=== PATIENT | female | born 1985 | race Caucasian/White ===

== ENCOUNTER 2018-02-13 17:23 | Emergency (ER) | payer OTHER ==
[2018-02-13 17:40] VITALS: BP 110/76; PULSE 80; RESP 16; TEMP 98.1; O2SAT 99
--- NOTE | 2018-02-13 18:42 | ED PDOC ---
HPI: Eye Injury/Pain Time Seen by Provider: 02/13/18 17:50 Chief Complaint (Nursing): Eye Problem Chief Complaint (Provider): Eye Problem History Per: Patient History/Exam Limitations: no limitations Onset/Duration Of Symptoms: Hrs Current Symptoms Are (Timing): Still Present Severity: None Wears Contact Lens?: No Additional Complaint(s): 32 year old female presents to the ED reporting of discomfort to the lateral corner of left eye, onset a couple hours ago. Otherwise: (-) discharge, (-) redness, (-) eye pain, (-) foreign body sensation, (-) decreased vision/visual changes, (-) other injury, (-) contact lens. Past Medical History Reviewed: Historical Data, Nursing Documentation, Vital Signs Vital Signs: Last Vital Signs Temp 98.1 F 02/13/18 17:38 Pulse 80 02/13/18 17:38 Resp 16 02/13/18 17:38 BP 110/76 02/13/18 17:38 Pulse Ox 99 02/13/18 17:38 - Surgical History Surgical History: No Surg Hx - Family History Family History: States: Unknown Family Hx - Home Medications Home Medications: Ambulatory Orders Medication Instructions Recorded Tobramycin 0.3% [Tobrex 0.3% Ophth 2 drop LEFTEYE QID #1 bottle 02/13/18 Liv] - Allergies Allergies/Adverse Reactions: Allergies Allergy/AdvReac Type Severity Reaction Status Date / Time No Known Allergies Allergy Verified 02/13/18 17:40 Review of Systems ROS Statement: Except As Marked, All Systems Reviewed And Found Negative Constitutional: Negative for: Fever Eyes: Positive for: Pain. Negative for: Vision Change, Conjunctivae Inflammation, Eyelid Inflammation, Redness Physical Exam - Reviewed Nursing Documentation Reviewed: Yes Vital Signs Reviewed: Yes - Physical Exam Comments: GENERAL APPEARANCE: Patient is awake, alert, oriented x 3, in no acute distress. HEENT: (-) facial swelling and erythema, (-) facial blisters. LIDS & LASHES: (+) mild edema and tenderness to palpation to the lateral canthus to left eye PUPILS: Pupils equal, round, reactive to light. EOM's: Intact. LID EVERSION: (-) foreign body. CONJUNCTIVAE: (-) injection. CORNEA: (-) foreign body noted. ANTERIOR CHAMBER: (-) foreign body, (-) tear in iris, (-) hyphema. - ECG O2 Sat by Pulse Oximetry: 99 (RA) Pulse Ox Interpretation: Normal Medical Decision Making Medical Decision Making: Advised to follow up with primary care physician in 1-2 days without fail. Advised to take medication as prescribed. Return to the emergency room at any time for any new or worsening symptoms. Patient states she fully agrees with and understands discharge instructions. States that she agrees with the plan and disposition. Verbalized and repeated discharge instructions and plan. I have given the patient opportunity to ask any additional questions. Scribe Attestation: Documented by Amanda Sanchez, acting as a scribe for Antoinette Dowling PA-C. Provider Scribe Attestation: All medical record entries made by the Scribe were at my direction and personally dictated by me. I have reviewed the chart and agree that the record accurately reflects my personal performance of the history, physical exam, medical decision making, and the department course for this patient. I have also personally directed, reviewed, and agree with the discharge instructions and disposition. Disposition - Clinical Impression Clinical Impression: Sty - Patient ED Disposition Is Patient to be Admitted: No Counseled Patient/Family Regarding: Diagnosis, Need For Followup, Rx Given - Disposition Referrals: Osvaldo Barnes MD [Staff Provider] - Disposition: Routine/Home Disposition Time: 18:15 Condition: STABLE Additional Instructions: Thank you for letting us take care of you today. You were treated for sty. The emergency medical care you received today was directed at your acute symptoms. If you were prescribed any medication, please fill it and take as directed. It may take several days for your symptoms to resolve. Return to the Emergency Department if your symptoms worsen, do not improve, or if you have any other problems. Please contact your doctor in 2 days for re-evaluation and follow up / or call one of the physicians/clinics you have been referred to that are listed on the Patient Visit Information form that is included in your discharge packet. Bring any paperwork you were given at discharge with you along with any medications you are taking to your follow up visit. Our treatment cannot replace ongoing medical care by a primary care provider (PCP) outside of the emergency department. Thank you for allowing the [facility] team to be part of your care today. Prescriptions: Tobramycin 0.3% [Tobrex 0.3% Ophth Soln] 2 drop LEFTEYE QID #1 bottle Instructions: Qi (Dinesh) Forms: [facility] [employer] (Slovak) - PA / VB NET DEVELOPER / Resident Statement MD/DO has reviewed & agrees with the documentation as recorded.
== END 2018-02-13 18:45 | disposition home or self-care (01) ==
LOC: H.ER 17:23
DX: H00.026 Hordeolum internum left eye, unspecified eyelid (principal)

== ENCOUNTER 2018-04-10 13:44 | Emergency (ER) | payer OTHER ==
[2018-04-10 13:51] VITALS: BP 101/68
--- NOTE | 2018-04-10 14:33 | ED PDOC ---
HPI: Female Pain Time Seen by Provider: 04/10/18 14:00 Chief Complaint (Nursing): Female Genitourinary Chief Complaint (Provider): Female Genitourinary History Per: Patient History/Exam Limitations: no limitations Onset/Duration Of Symptoms: Days (x1) Current Symptoms Are (Timing): Still Present Additional Complaint(s): 32 year old female, approximately 6 weeks , presents to the emergency department with a complaint of vaginal spotting associated with intermittent nausea since 0900 this morning. Patient called her COLORING CHECKER doctor whom recommended to go to ED for further evaluation. She denies having any fever, chills, painful urination, bloody urine, vaginal pain, abdominal pain, dizziness or back pain. Patient is currently taking vitamins and has not had an US performed for this to date. COLORING CHECKER: Dr. Javier Galindo Past Medical History Reviewed: Historical Data, Nursing Documentation, Vital Signs Vital Signs: Last Vital Signs Temp 98 F 04/10/18 13:48 Pulse 82 04/10/18 13:48 Resp 18 04/10/18 13:48 BP 101/68 04/10/18 13:48 Pulse Ox 100 04/10/18 13:48 - Medical History PMH: No Chronic Diseases - Surgical History Surgical History: No Surg Hx - Family History Family History: States: Unknown Family Hx - Social History Current smoker - smoking cessation education provided: No Alcohol: None Drugs: Denies - Allergies Allergies/Adverse Reactions: Allergies Allergy/AdvReac Type Severity Reaction Status Date / Time No Known Allergies Allergy Verified 04/10/18 13:48 Review of Systems ROS Statement: Except As Marked, All Systems Reviewed And Found Negative Constitutional: Negative for: Fever, Chills Gastrointestinal: Positive for: Nausea (intermittent). Negative for: Abdominal Pain Genitourinary Female: Positive for: Vaginal Bleeding (spotting). Negative for: Dysuria, Hematuria, Other (vaginal pain) Musculoskeletal: Negative for: Back Pain Neurological: Negative for: Dizziness Physical Exam - Reviewed Nursing Documentation Reviewed: Yes Vital Signs Reviewed: Yes - Physical Exam Appears: Positive for: Well, Non-toxic, No Acute Distress Head Exam: Positive for: ATRAUMATIC, NORMAL INSPECTION, NORMOCEPHALIC Skin: Positive for: Normal Color Eye Exam: Positive for: Normal appearance Neck: Positive for: Normal Cardiovascular/Chest: Positive for: Regular Rate, Rhythm. Negative for: Murmur Respiratory: Positive for: Normal Breath Sounds. Negative for: Respiratory Distress Pulses-Radial (L): 2+ Pulses-Radial (R): 2+ Gastrointestinal/Abdominal: Positive for: Normal Exam, Soft. Negative for: Tenderness Extremity: Positive for: Normal ROM (upper/lower) Neurologic/Psych: Positive for: Alert (x3), drug abuse resistance education officer II-XII (grossly intact), Oriented. Negative for: Motor/Sensory Deficits - Laboratory Results Result Diagrams: 04/10/18 14:34 04/10/18 14:34 - ECG O2 Sat by Pulse Oximetry: 100 (RA) Pulse Ox Interpretation: Normal Medical Decision Making Medical Decision Making: Initial Impression: Vaginal bleeding; first trimester Initial Plan: * Type and screen * BNP * CMP * Urine * Urine dipstick * CBC Time: 1424 --Will discuss case with Dr. Galindo to consider need for imaging vs. outpatient follow up. Time: 1432 --Spoke with Dr. Galindo. Advised to check BETA level. If count is above 1500, transvaginal US is recommended. --BETA-HCG ordered. Time: 1450 --Urine confirms active . Rh+ labs BHCG 53625 US prelim reveals IUP 6wk w FHR Discussed Dr Galindo earlier, pelvic rest followup in office next week Scribe Attestation: Documented by Chika Saeed, acting as a scribe for Dr. Nick Zambrano III, DO. Provider Scribe Attestation: All medical record entries made by the Scribe were at my direction and personally dictated by me. I have reviewed the chart and agree that the record accurately reflects my personal performance of the history, physical exam, medical decision making, and the department course for this patient. I have also personally directed, reviewed, and agree with the discharge instructions and disposition. Disposition - Clinical Impression Clinical Impression: Threatened in early - Disposition Referrals: Javier Galindo DO [Family Provider] - Condition: STABLE Additional Instructions: Pelvic rest for now- no sex, nothing in the vagina, no heavy lifting or exertion until you see Dr Galindo. Return to ER for any pain, weakness, further bleeding, cramping or any concern. Instructions: Threatened Miscarriage Forms: [employer] (Norwegian)
[2018-04-10 14:52] LABS: BASO % 0.4 % (0.0-2.0); EOS # 0.1 K/uL (0.0-0.7); HEMOGLOBIN 12.3 g/dL (12.0-16.0); LYMPH % 20.7 % (20.0-40.0); MEAN CELL VOLUME 83.9 fl (81.0-99.0); MEAN CORPUSCULAR HEMOGLOBIN 28.1 pg (27.0-31.0); MEAN CORPUSCULAR HGB CONC 33.5 g/dL (33.0-37.0); MEAN PLATELET VOLUME 13.7 fl (7.2-11.7); MONO # 0.7 K/uL (0.0-0.8); MONO % 7.6 % (0.0-10.0); NEUT # 6.8 K/uL (1.8-7.0); NEUT % 70.3 % (50.0-75.0); RBC 4.39 Mil/uL (3.80-5.20); RED CELL DISTRIBUTION WIDTH 14.6 % (11.5-14.5); WHITE BLOOD COUNT 9.7 K/uL (4.8-10.8)
[2018-04-10 15:00] LABS: ALB/GLOB RATIO 1.3 (1.0-2.1); ALBUMIN 4.3 g/dL (3.5-5.0); BLOOD UREA NITROGEN 9 mg/dl (7-17); GFR AFRICAN-AMERICAN > 60; GFR NON-AFRICAN AMERICAN > 60
[2018-04-10 15:33] LABS: ALT/SGPT 34 U/L (9-52); AST/SGOT 27 U/L (14-36); CALCIUM 9.8 mg/dL (8.4-10.2)
--- NOTE | 2018-04-10 18:19 | US ---
PROCEDURE: OB Pelvic Ultrasound HISTORY: spotting LMP: 02/26/2018, serum beta HCG 32,662. COMPARISON: None available. FINDINGS: UTERUS: Gestational sac: Single intrauterine gestation. Measures 1.7 cm compatible with estimated gestational age of 6 weeks, 0 days. Yolk sac: Measures 0.3 cm. pole: [place]-rump length measures 0.3 cm compatible with estimated gestational age of 5 weeks, 6 days. Heart rate: 151 bpm. age (Ultrasound estimated): 6 weeks, 0 days. Deidra-gestational hemorrhage: None. Date of delivery (Ultrasound estimated) : 12/04/2018 Uterus measures 7.4 x 4.1 x 4.8 cm. Retroverted. Normal in size and appearance. CERVIX: Measures 3.6 cm. Long and closed. No cervical abnormality seen. RIGHT OVARY: Measures 3.9 x 2.6 x 3.3 cm. No mass lesion. Normal flow. LEFT OVARY: Measures 4.0 x 2.5 x 3.5 cm. Cyst measuring 2.1 x 1.4 x 1.5. Normal flow. FREE FLUID: None. OTHER FINDINGS: None. IMPRESSION: Single live intrauterine gestation with average ultrasound age of 6 weeks, 0 days. heart rate 151 beats per minute. Cervix long and closed.
[2018-04-10 19:01] VITALS: PULSE 128; RESP 19; TEMP 97; O2SAT 98
== END 2018-04-10 19:01 | disposition home or self-care (01) ==
LOC: MERGE 13:44 → H.ER 13:44
DX: O20.0 Threatened abortion (principal); Z3A.01 Less than 8 weeks gestation of pregnancy

== ENCOUNTER 2018-05-20 18:45 | Emergency (ER) | payer OTHER ==
[2018-05-20 18:59] VITALS: TEMP 99
--- NOTE | 2018-05-20 20:06 | ED PDOC ---
HPI: Abdomen Time Seen by Provider: 05/20/18 19:39 Chief Complaint (Nursing): Trauma History Per: Patient Current Symptoms Are (Timing): Better Location Of Pain/Discomfort: RLQ Associated Symptoms: denies: Fever, Chills, Nausea, Vomiting Additional Complaint(s): 33 y/o F approx 12 weeks states that she opened her door and a dog jumped on her and scratched her knees, states she fell backwards on her bum, states she felt some abdominal pain earlier which has since resolved. Denies vaginal bleeding. No complications with . Denies dog bite. Dog is neighbor's dog, not stray. Past Medical History Reviewed: Historical Data, Nursing Documentation, Vital Signs Vital Signs: Last Vital Signs Temp 99.0 F 05/20/18 18:59 Pulse 75 05/20/18 22:58 Resp 20 05/20/18 22:58 BP 119/75 05/20/18 22:58 Pulse Ox 100 05/20/18 22:58 - Family History Family History: States: Unknown Family Hx - Home Medications Home Medications: Ambulatory Orders Medication Instructions Recorded Tobramycin 0.3% [Tobrex 0.3% Ophth 2 drop LEFTEYE QID #1 bottle 02/13/18 [place]] - Allergies Allergies/Adverse Reactions: Allergies Allergy/AdvReac Type Severity Reaction Status Date / Time No Known Allergies Allergy Verified 05/20/18 19:01 Review of Systems Gastrointestinal: Positive for: Abdominal Pain Physical Exam - Reviewed Nursing Documentation Reviewed: Yes Vital Signs Reviewed: Yes - Physical Exam Appears: Positive for: Well, Non-toxic, No Acute Distress Head Exam: Positive for: ATRAUMATIC, NORMAL INSPECTION, NORMOCEPHALIC Skin: Positive for: Normal Color, Warm, DRY Eye Exam: Positive for: EOMI, Normal appearance, PERRL ENT: Positive for: Normal ENT Inspection Neck: Positive for: Normal, Painless ROM Cardiovascular/Chest: Positive for: Regular Rate, Rhythm Respiratory: Positive for: CNT, Normal Breath Sounds Gastrointestinal/Abdominal: Positive for: Normal Exam, Bowel Sounds, Soft, Tenderness (Mild R sided abdominal pain upon tenderness, gravid uterus) Back: Positive for: Normal Inspection. Negative for: Vertebral Tenderness, Muscle Spasm Extremity: Positive for: Normal ROM, Other (Mild abrasions to knees). Negative for: Deformity Neurologic/Psych: Positive for: Alert, Oriented - ECG O2 Sat by Pulse Oximetry: 97 Pulse Ox Interpretation: Normal Medical Decision Making Medical Decision MakinPM 12-week patient presenting with fall with mild abd pain after falling -not concerned for zoonoses given scratch and no bite higgins -will get U/S to assess for FM and HR -tetanus updated last year 11PM -Ultrasound wnl -Explained to patient and that dog should be investigated and watched for 10 days for potential rabid behavior, but exposure is low if no bite -Offered rabies vaccination but family opted conservative management at this time -Advised family to followup for reguarly scheduled appointment with Dr. Galindo tomorrow Disposition - Clinical Impression Clinical Impression: Dog scratch, Fall - Disposition Referrals: Javier Galindo DO [Staff Provider] - Disposition Time: 23:00 Condition: STABLE Instructions: Skin Abrasions Forms: [facility] (Mosotho)
[2018-05-20 22:58] VITALS: BP 119/75; PULSE 75; RESP 20
[2018-05-21 04:55] VITALS: O2SAT 97
--- NOTE | 2018-05-21 11:25 | US ---
Date of service: 05/20/2018 PROCEDURE: OB Pelvic Ultrasound HISTORY: s/p fall, 12 weeks COMPARISON: None available. FINDINGS: UTERUS: Single Live intrauterine gestation. CRL measures 5.0 cm equivalent to 11 weeks and 5 days of gestational age with Gestational sac diameter measures 5.4 cm equivalent to 11 weeks and 2 days of gestational age. age (Ultrasound estimated): 11 weeks and 4 days Date of delivery (Ultrasound estimated) : 12/05/2018 Heart rate: 153 bpm. Deidra-gestational hemorrhage: None. CERVIX: Long and closed. No cervical abnormality seen. RIGHT OVARY: Measures 2.9 x 1.8 x 2.0 cm. No mass. Normal flow. LEFT OVARY: Measures 3.3 x 2.7 x 3.6 cm. No mass. Normal flow. There is a 2.0 x 1.9 x 2.1 cm simple cyst. FREE FLUID: None. OTHER FINDINGS: None. IMPRESSION: Single live intrauterine gestation with mean gestational age of 11 weeks and 4 days. The estimated date of delivery by ultrasound is 12/05/2018. The ultrasound dates correspond with the clinical dates. A preliminary report was provided by [facility].
== END 2018-05-20 23:01 | disposition home or self-care (01) ==
LOC: H.ER 18:45
DX: T14.8XXA Other injury of unspecified body region, initial encounter (principal); W54.8XXA Other contact with dog, initial encounter; Y92.89 Other specified places as the place of occurrence of the external cause; Z3A.12 12 weeks gestation of pregnancy

== ENCOUNTER 2018-05-21 13:17 | Emergency (ER) | payer OTHER ==
--- NOTE | 2018-05-21 13:54 | ED PDOC ---
HPI: General Adult Time Seen by Provider: 05/21/18 13:30 Chief Complaint (Nursing): Rabies Vaccine Series Chief Complaint (Provider): dog bite History Per: Patient History/Exam Limitations: no limitations Onset/Duration Of Symptoms: Days (x1) Current Symptoms Are (Timing): Still Present Additional Complaint(s): 33 year old female, currently 12 weeks , presents to the ED for rabies vaccine series. Patient reports she was scratched by a dog last night and sustained abrasions on both knees.She thinks she was also bit by the dog. Patient was seen in ED last night and was advised to try and obtain rabies status of dog that bit her. Patient returns today stating that she would likely rabies vaccine series because the dog is a stray and she has no way of contacting the owners. Patient states she spoke with her OB Dr. Galindo who advised that she go see Dr. Randle. Dr. Randle referred her to ED for further evaluation. PMD: Dr. Randle Past Medical History Reviewed: Historical Data, Nursing Documentation, Vital Signs Vital Signs: Last Vital Signs Temp 98.0 F 05/21/18 13:26 Pulse 98 H 05/21/18 13:26 Resp 16 05/21/18 13:26 BP 110/64 05/21/18 13:26 Pulse Ox 97 05/21/18 14:50 - Medical History PMH: No Chronic Diseases - Surgical History Surgical History: No Surg Hx - Family History Family History: States: No Known Family Hx - Living Arrangements Living Arrangements: With Family - Social History Current smoker - smoking cessation education provided: No Alcohol: None Drugs: Denies - Home Medications Home Medications: Ambulatory Orders Medication Instructions Recorded Tobramycin 0.3% [Tobrex 0.3% Ophth 2 drop LEFTEYE QID #1 bottle 02/13/18 Soln] Rabies Vaccine (Pcec)/Pf [Rabavert 2.5 unit IM ASDIR #4 vial 05/21/18 Rabies Vaccine Vial] - Allergies Allergies/Adverse Reactions: Allergies Allergy/AdvReac Type Severity Reaction Status Date / Time No Known Allergies Allergy Verified 05/20/18 19:01 Review of Systems ROS Statement: Except As Marked, All Systems Reviewed And Found Negative Constitutional: Negative for: Fever, Chills Skin: Positive for: Other (abrasions on both knees s/p being attacked by dog) Physical Exam - Reviewed Nursing Documentation Reviewed: Yes Vital Signs Reviewed: Yes - Physical Exam Appears: Positive for: Well, Non-toxic, No Acute Distress Head Exam: Positive for: ATRAUMATIC, NORMAL INSPECTION, NORMOCEPHALIC Skin: Positive for: Normal Color. Negative for: Rash Eye Exam: Positive for: Normal appearance Cardiovascular/Chest: Positive for: Regular Rate, Rhythm Respiratory: Positive for: Normal Breath Sounds Extremity: Positive for: Other (Superficial abrasions to bilateral patellar regions, full range of motion bilateral lower extremities, no infection noted) Neurologic/Psych: Positive for: Alert, Oriented - ECG O2 Sat by Pulse Oximetry: 97 (RA) Pulse Ox Interpretation: Normal Medical Decision Making Medical Decision Making: Time: 13:50 Impression: 33 year old female requesting rabies vaccine s/p being attacked by dog last night. Case was d/w Dr. Troy in detail. Rabies vaccine is Class C for meds. Patient understands that rabies vaccine is not without risk during based on current studies. Patient is willing to accept this risk and still would like to proceed with rabies vaccine. Patient asked to review the ingredients of the rabies vaccine that this [facility] has in stock. This information was provided by Yoko, ED pharmacist. Patient states she does not want to have this particular vaccine administered and is requesting Rabavert instead. 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 Patient was given schedule for vaccine series and was told to either go to PMD office or return to ED for IM administration of meds. Patient verbalized understanding of the fact the rabies vaccine is class C and can carry risk, when administered during . Patient states that she accepts this risk and wants to continue with series. Scribe Attestation: Documented by Yun Bonilla, acting as a scribe for Cady Bush PA-C. Provider Scribe Attestation: All medical record entries made by the Scribe were at my direction and personally dictated by me. I have reviewed the chart and agree that the record accurately reflects my personal performance of the history, physical exam, medical decision making, and the department course for this patient. I have also personally directed, reviewed, and agree with the discharge instructions and disposition. Disposition - Clinical Impression Clinical Impression: Dog scratch - Patient ED Disposition Is Patient to be Admitted: No - Disposition Referrals: Jose G Randle MD [Medical Doctor] - Disposition: Routine/Home Disposition Time: 15:05 Condition: STABLE Additional Instructions: production planning supervisor meds at pharmacy and return to ED or primary doctor as per vaccine schedule to have medication administered. Prescriptions: Rabies Vaccine (Pcec)/Pf [Rabavert Rabies Vaccine Vial] 2.5 unit IM ASDIR #4 vial Instructions: Skin Abrasions, Rabies Vaccine Forms: [facility] (C[place] Rican)
[2018-05-21 16:52] VITALS: BP 120/70; PULSE 78; RESP 18; TEMP 98.1; O2SAT 99
== END 2018-05-21 16:05 | disposition home or self-care (01) ==
LOC: H.ER 13:17
DX: T14.8XXA Other injury of unspecified body region, initial encounter (principal); Z3A.12 12 weeks gestation of pregnancy

== ENCOUNTER 2018-07-30 13:55 | Emergency (ER) | payer OTHER ==
[2018-07-30 21:23] VITALS: BP 145/76; PULSE 87; O2SAT 98
--- NOTE | 2018-07-31 04:03 | OBHP ---
Datetime: 07/30/2018 16:38 IP Adm Impression: , intrauterine IP Admit Plan: Observation/Evaluation; Discharge home Admit Comment, IP Provider: 33 year old at 22 weeks (confirmed via 1st tri U/S, PATY Dec 03) pre sents for a brown streak in discharge noticed earlier in the day. Patient denies vaginal bleeding or a gush of fluid. uncomplicated thus far. - [facility], Dr Galindo PMH: denies Meds: denies, PNV Allergy: denies FHx: denies Labs: unknown, no records ROS: denies headache, change in vision, dizziness, nausea, vomiting, diarrhea, constipation, chest pain, shortness of breath, and lower extremity edema PE: comfortable, in no acute stress Abd: no tenderness to palpation CV: RRR Resp: no respiratory distress Extremities: no pitting edema VE: speculum exam (as per Dr Avalos): no active bleeding, cervix closed,discharge indicative of BV present Assessment: 33 year old at 22 weeks (confirmed via 1st tri U/S, PATY Dec 03) presents for a br own streak in discharge noticed earlier in the day. Plan -RX for Flagyl 500 mg BID x 7 days, #14 -Follow up with routine care -Patient educated on emergent signs and symptoms warranting immediate visit to [facility]. Case seen and discussed with Dr Avalos ---Radha Thomas, PGY1 [facility] FM Addendum: I saw and examined patient at presentation. Sterile speculum exam showed cervix long, closed, post erior. No blood, fluid. Discharge consistent with bacterial vaginosis. Patient given prescription for Flagyl. Discussed plan with patient all patient questions answered. Patient will follow up in office as already scheduled. Bailey Pelvic Type - PN: Adequate Extremities - PN: Normal Abdomen - PN: Normal Back - PN: Not Done Breast - PN: Not Done Lungs - PN: Normal Heart - PN: Normal Thyroid - PN: Not Done Neurologic - PN: Not Done HEENT - PN: Not Done General - PN: Normal EGA AdmitDate IP: 22.0 Vital Signs Provider: Reviewed; Within Normal Limits IP Chief Complaint: Other (Annotations: Data stored by CPN on behalf of user) Dilatation, Provider: 0 Genitourinary Exam: Not Done DTRs - PN: Not Done
== END 2018-07-30 15:30 | disposition home or self-care (01) ==
LOC: H.EROB2 13:55
DX: O26.852 Spotting complicating pregnancy, second trimester (principal); Z3A.22 22 weeks gestation of pregnancy

== ENCOUNTER 2018-09-20 09:55 | Emergency (ER) | payer OTHER ==
[2018-09-20 10:29] VITALS: BMI 29.9
--- NOTE | 2018-09-20 13:45 | US ---
Date of service: 09/20/2018 HISTORY: Leg tenderness. PRIORS: None. FINDINGS: 2-D, color and duplex Doppler analysis of the lower extremity venous circulation using routine protocol from the femoral veins through the popliteal veins. Venous compressibility: Normal. Flow and augmentation patterns: Normal. Visualized veins upper third of calf: Normal. Cole cyst: None. IMPRESSION: No sonographic or Doppler evidence for DVT in left lower extremity.
--- NOTE | 2018-09-20 14:10 | OBHP ---
Datetime: 09/20/2018 10:32 IP Adm Impression: , intrauterine ; No Active Labor IP Chief Complaint Other: Leg pain IP Admit Plan: Observation/Evaluation; Discharge home Admit Comment, IP Provider: 33 yo f 29.3wk presented to [facility] due to left leg pain started 2 day s ago. Pt state pain is located on the buttock area, 4 out of 10, worsen on palpation, and radiate to her foot. Pt denies trauma or falls. Otherwise patient denies SOB chest pain, or any other symptoms. Pt denies Vaginal bleeding, vaginal discharge, fluid or contraction. ROS negative except if mentioned in HPI ALlergy None PCP: Dr. Galindo Meds: PNV PMH: none OBGYN: GDM controlled with diet, no std PFH: dad DM, MOm Reilly Social Denies smoke drink drug use 10:36 Assessment and plan 33 yo f 29.3wk presented to [facility] due to left leg pain started 2 days ago. PT is not in acute distress Oxygen saturation 100% on room air Physical exam is within normal limit Extremity no calf tenderness, Homanz sign negative, no size discrepency, erythema or edema noted. FHS is reactive VItals WNL Plan Dupplex US of LEFT lower Extremity Acetomenophen 650 for pain Continue monitoring Lesterkb Fermin PGY1 discussed with Dr Barajas Attending Note: Doppler left Lower extremity reports negative findings. Plan: Discharge Home. Follow up with Dr Galindo Intructed to return with worsening pain. Pelvic Type - PN: Not Done Extremities - PN: Normal Abdomen - PN: Normal Back - PN: Normal Breast - PN: Not Done Lungs - PN: Normal Heart - PN: Normal Thyroid - PN: Normal Neurologic - PN: Normal HEENT - PN: Normal General - PN: Normal FHR - Baseline A Provider: 135 Comments, ACOG Physical Exam: PT is not in acute distress Heart s1/s2 heard no murmur Lung clear, with no effort Abd non tender, bs + extremity, tenderness upon palpation of LEFT buttock, no visual bruises noted, otherwise no Legs s ize discrepancy, no sign of erythema, edema, or warmth, Homanz test negative, no Calf tenderness note d, except for deep palpations. Gestation - Est Wks by US: 29.3 EGA AdmitDate IP: 29.3 Vital Signs Provider: Reviewed; Within Normal Limits IP Chief Complaint: Maternal discomfort; Other NICHD Variability Prov Fetus A: Moderate 6-25bpm NICHD Accel Fetus A IP Provider: 15X15 FHR Category Provider Fetus A: Category I NICHD Decel Fetus A IP Provider: None Genitourinary Exam: Normal DTRs - PN: Normal
[2018-09-20 23:50] VITALS: BP 110/66; PULSE 90; TEMP 98.2; O2SAT 100
== END 2018-09-20 14:00 | disposition home or self-care (01) ==
LOC: H.EROB2 09:55 → H.L&D 10:54 → H.EROB2 14:00
DX: O26.93 Pregnancy related conditions, unspecified, third trimester (principal); M79.605 Pain in left leg; Z3A.29 29 weeks gestation of pregnancy

== ENCOUNTER 2018-10-07 23:00 | Inpatient (IN) | payer OTHER ==
[2018-10-08] MEDS ORDERED: Magnesium Sul 40GM/1L SW 40 GM/1,000 ML ML IV ONE ×2 (01:09→06:06)
[2018-10-08 03:14] VITALS: BMI 29.9
[2018-10-08] MEDS ORDERED: Lactated Ringer's 1,000 ML IV ONE (05:56)
[2018-10-08] MEDS ORDERED: AMPicillin 2 GM in Sodium Chloride 0.9% 100 ML IVPB ONE (05:56)
[2018-10-08] MEDS ORDERED: Lactated Ringer's 1,000 ML IV SCH ×2 (06:00→06:15)
[2018-10-08] MEDS ORDERED: AMPicillin 1 GM in Sodium Chloride 0.9% 100 ML IVPB SCH (06:00)
[2018-10-08] MEDS ORDERED: Betamethasone Soluspan 30 mg/5mL Inj Susp IM ONE ×2 (06:04→14:00)
[2018-10-08] MEDS ORDERED: Magnesium Sulfate 4 gm/100 ml 4 GM/100 ML BAG IV ONE (06:06)
[2018-10-08] MEDS ORDERED: Lidocaine 1% Inj (20ml) ONE (06:51)
[2018-10-08] MEDS ORDERED: Oxytocin 30 UNIT 30 UNITS/500 ML BAG IV ONE (06:52)
[2018-10-08] MEDS ORDERED: OXYTOCIN/0.9 % NS 20 UNIT/1,000 ML BAG IV ONE (06:52)
--- NOTE | 2018-10-08 07:29 | OBADHP ---
Datetime: 10/08/2018 00:30 Admit Comment, IP Provider: 33 y/o female at 32 wk GA w/ GDM managed by diet, presents to [facility] w/ c/o lower abdominal pain and lower back pain that is 7/10 in severity. This started early this mo rning at 7AM. Patient states that pain was temporarily alleviated by warm water compresses. She endor ses taking Tylanol at 9PM, which did not relieve her pain. She denies SOB, CP, n/v, headache. She den ies vaginal bleeding, vaginal discharge/fluid loss. She denies urinary symptoms. She was last sexuall y active 6 months ago. ROS negative except as mentioned in HPI Gen: uncomfortable, not in distress Heart: S1S2 present, normal RR Lungs: Normal resp effort, clear to auscultation bilaterally Abd: Gravid, soft, non-tender Gent: Speculum exam (chaperoned by Dr. Singletary): mucous at cervical os, cervix dilated Extremities: no calf tenderness, no swelling OB: Dr. Galindo Pmhx: GDM2 managed by diet Meds: PNV Famhx: father: DM, mother: GHtn SocialHx: Denies tobacco, etoh, recreational drug use. 11:35PM Assessment and plan 33 yo f 31.6wk GA evaluated for possible pre-term labor Cervical exam: 2-3 cm dilated, Contractions Q10 minutes Admit patient to L_D 1 L LR bolus 2 L LR 125mL/hr MagSulfate 4g IV loading, then 2g IV Q2H Bethamethasone 12mg IV Q24H Ampicillin 2gm IV once, ampicillin 1gm/hr IV Monitor FHR CBC, type and screen will check GBS culture Case discussed w/ attending Alcira Samuels MD, PGYI The patient was seen with the resident I agree with note patient noted to have uterine contraction s cervix 2-3 cm dilated plan for toco lysis, steroids, antibiotics. The plan of care was discussed wi th patient and partner we discussed risks of prematurity there were given the opportunity to ask ques tions all questions answered and agreed to plan of care Pelvic Type - PN: Adequate Extremities - PN: Normal Abdomen - PN: Normal Back - PN: Not Done Breast - PN: Not Done Lungs - PN: Normal Heart - PN: Normal Thyroid - PN: Not Done Neurologic - PN: Not Done HEENT - PN: Normal General - PN: Normal Presentation-Admit: Vertex FHR - Baseline A Provider: 140 Contraction Comments Provider: Q10 minutes Comments, ACOG Physical Exam: U/S at bedside shows patient in cephalic position Vital Signs Provider: Reviewed; Within Normal Limits IP Chief Complaint: Uterine contractions NICHD Variability Prov Fetus A: Moderate 6-25bpm NICHD Accel Fetus A IP Provider: [id number] FHR Category Provider Fetus A: Category I NICHD Decel Fetus A IP Provider: None Dilatation, Provider: 2-3 Effacement, Provider: 65 Genitourinary Exam: Not Done DTRs - PN: Not Done EGA AdmitDate IP: 32.5 IP Adm Impression: , intrauterine IP Admit Plan: Admit to unit; Initiate labor protocol Datetime: 10/07/2018 23:35 Weight - Estimated: 7510 Gestation - Est Wks by US: 31.6 Pool Provider: Negative Datetime: 09/20/2018 10:32 IP Chief Complaint Other: Leg pain
[2018-10-08] MEDS: Lactated Ringer's 1,000 ML IV SCH ×5 (08:00→23:15)
[2018-10-08 09:17] LABS: BASO % 0.2 % (0.0-2.0); EOS % 0.1 % (0.0-4.0); LYMPH # 1.6 K/uL (1.0-4.3); LYMPH % 16.5 % (20.0-40.0); MEAN CELL VOLUME 85.4 fl (81.0-99.0); MEAN CORPUSCULAR HEMOGLOBIN 27.2 pg (27.0-31.0); MEAN CORPUSCULAR HGB CONC 31.8 g/dL (33.0-37.0); MEAN PLATELET VOLUME 15.7 fl (7.2-11.7); MONO # 0.8 K/uL (0.0-0.8); NEUT # 7.4 K/uL (1.8-7.0); NEUT % 75.2 % (50.0-75.0); NRBC % 0.2 % (0.0-0.0); RBC 4.04 Mil/uL (3.80-5.20); RED CELL DISTRIBUTION WIDTH 15.3 % (11.5-14.5); WHITE BLOOD COUNT 9.9 K/uL (4.8-10.8)
[2018-10-08 09:18] LABS: BLOOD UREA NITROGEN 11 mg/dl (7-17); GFR NON-AFRICAN AMERICAN > 60
[2018-10-08 09:19] LABS: ALBUMIN 3.6 g/dL (3.5-5.0); ALT/SGPT 32 U/L (9-52); AST/SGOT 30 U/L (14-36); CALCIUM 10.5 mg/dL (8.4-10.2)
--- NOTE | 2018-10-08 10:31 | CP.PCM.CON ---
History of Present Illness - History of Present Illness History of Present Illness: Neonatology COnsult Requested by OB to speak to Ms Walter and regarding her at 32 + weeks gestation. She came in today for labor; currently 5 cm dilated on exam. She received 1 dose betamethasone and now on PCN; s/p mag sulfate. I reviewed the maternal chart in detail and I spoke to family regarding mortality and morbidity at 32 + 5/7 weeks gestation. We discussed survival to be at approximately > 95%. This survival rate will increase with each additional week of gestation. I explained that multiple factors such such as gender, race, small for gestational age, multiple gestation, drug exposure and maternal conditions might affect the survival and neurological prognosis for pre mature infants. I discussed the complication of prematurity to include but are not limited to: -Respiratory: respiratory distress with need for mechanical ventilation, nasal CPAP, oxygen therapy or surfactant therapy. Pneumothorax. Chronic lung disease. Increased susceptibility to respiratory infections and asthma -Infections: Lung, blood, intestina,l kidneys and brain infections with need for prolonged antibiotics therapy -Anemia with need for blood or blood products transfusions -Brain hemorrhage with developmental delay, retinopathy of prematurity with possible blindness. apnea of prematurity with need of caffeine and possible discharge home on home apnea monitor -Patent ductus ductus arteriosus with possible medical or surgical closure -Feeding problems with need for gavage feedings, parental nutrition, inadequate nutrition with poor growth. liver dysfunction -Thermoregulation with need for incubator/radiant warmer. Jaundice with need for phototherapy -Post after discharge from the hospital I further discuss criteria for transfer to level three facility if needs more intensive management of prematurity. I discussed the length of stay in the intensive care unit to be approximately 4 to 6 weeks. This could be longer if serious complications occur or may be occasionally be shorter. I provided an overview of the potential long-term neurodevelopmental complications of prematurity and prolonged intensive care. Ms Walter and appeared to understand the above discussion and asked appropriate questions. Past Patient History - Past Social History Smoking Status: Never Smoked - PSYCHIATRIC Hx Substance Use: No - SURGICAL HISTORY Hx Surgeries: Yes Other/Comment: Uterine pollyp removal 2016 - ANESTHESIA Hx Anesthesia: Yes Hx Anesthesia Reactions: No Hx Malignant Hyperthermia: No Meds Allergies/Adverse Reactions: Allergies Allergy/AdvReac Type Severity Reaction Status Date / Time No Known Allergies Allergy Verified 10/08/18 05:54 - Medications Medications: Current Medications Betamethasone Acet/Betameth SodPhos (Celestone Soluspan) 12 mg IM ONCE ONE Stop: 10/08/18 14:01 Lactated Ringer's (Lactated Ringer's) 1,000 mls @ 75 mls/hr IV .[id number] SHREYA Last Admin: 10/08/18 01:35 Dose: 75 mls/hr OXYTOCIN/0.9 % NS (Oxytocin 20 Unit/1000 Ml-Ns) 20 unit in 1,000 mls @ 125 mls/hr IV .Q8H ONE Stop: 10/08/18 14:51 Results - Vital Signs Recent Vital Signs: Last Vital Signs Temp 98.5 F 10/08/18 08:03 Pulse 103 H 10/08/18 08:03 Resp 20 10/08/18 08:03 BP 129/69 10/08/18 08:03 Pulse Ox - Labs Result Diagrams: 10/08/18 05:57 10/08/18 00:30 Labs: Laboratory Results - last 24 hr 10/08/18 10/08/18 10/08/18 00:30 00:30 05:57 WBC 9.9 RBC 4.04 Hgb 11.0 L Hct 34.5 MCV 85.4 MCH 27.2 MCHC 31.8 L RDW 15.3 H Plt Count 130 MPV 15.7 H Neut % (Auto) 75.2 H Lymph % (Auto) 16.5 L Travis % (Auto) 8.0 Eos % (Auto) 0.1 Baso % (Auto) 0.2 Neut # (Auto) 7.4 H Lymph # (Auto) 1.6 Travis # (Auto) 0.8 Eos # (Auto) 0.0 Baso # (Auto) 0.0 Sodium 133 Potassium 4.0 Chloride 100 Carbon Dioxide 22 Anion Gap 15 BUN 11 Creatinine 0.5 L Est GFR ( Amer) > 60 Est GFR (Non-Af Amer) > 60 Random Glucose 115 H Calcium 10.5 H Total Bilirubin 0.4 AST 30 ALT 32 Alkaline Phosphatase 170 H D Total Protein 7.2 Albumin 3.6 Globulin 3.6 Albumin/Globulin Ratio 1.0 Blood Type A POSITIVE Antibody Screen Negative BBK History Checked Patient has bt
--- NOTE | 2018-10-08 11:28 | OBPN ---
Datetime: 10/08/2018 09:30 IP Informed Consent Obtain: Vaginal Delivery IP Procedures: Sterile Vag Exam IP Progress Plan: Continue present management Contraction Comments Provider: Q 8 mins FHR - Baseline A Provider: 120 Presentation-Admit: Vertex IP Progress Note Comment: Patient evaluated, comfortable. Feels contractions, but does not want pain medication at this time VE=5/100/-2 GYI=677 mod renée, +accels no decels TOCO = ctxning q 8 mins A/P 1. Patient shawn every 8 mins, about 5cm. MgSO4 stopped for tocolysis, will give second dose of Betamethasone at 2:30 (12 hours from first dose) 2. WIll continue PCN for GBS unknown prophylaxis, swab still pending for culture 3. Will re-evaluate and observe today for signs of progression of labor. Neonatology aware of stat us Vital Signs Provider: Reviewed; Within Normal Limits NICHD Accel Fetus A IP Provider: [id number] NICHD Variability Prov Fetus A: Moderate 6-25bpm Dilatation, Provider: 5 Effacement, Provider: 100 Station, Provider: -2 NICHD Decel Fetus A IP Provider: None Datetime: 10/08/2018 00:30 FHR Category Provider Fetus A: Category I Datetime: 10/07/2018 23:35 Pool Provider: Negative Gestation - Est Wks by US: 31.6 Weight - Estimated: 7510
--- NOTE | 2018-10-08 16:54 | OBPN ---
Datetime: 10/08/2018 15:44 IP Progress Impression: Normal progression of labor IP Informed Consent Obtain: Vaginal Delivery IP Procedures: Sterile Vag Exam IP Progress Plan: Continue present management Membranes, Provider: Bulging Contraction Comments Provider: Q 6-8 mins FHR - Baseline A Provider: 120 IP Progress Note Comment: Patient evaluated, feeling increased pressure and discomfort VE=6-7/100/-1 FHR = 120 mod renée, +accels, no decels TOCO = ctxning q 6-8 mins A/P 1. Patient making slow progress in labor. Now 6-7 cm. Continue PCN for GBS unknown status, no sign s of chorio - FHR 120 mod renée, REactive, no purulent discharge, no fever 2. Pt declined pain management 3. Neonatology aware of status Vital Signs Provider: Reviewed; Within Normal Limits NICHD Accel Fetus A IP Provider: [id number] NICHD Variability Prov Fetus A: Moderate 6-25bpm Dilatation, Provider: 6-7 Effacement, Provider: 100 Station, Provider: -1
[2018-10-08] MEDS ORDERED: Fentanyl/Bupivacaine HCl 250 ML EPI ONE (22:37)
--- NOTE | 2018-10-08 22:40 | OBPN ---
Datetime: 10/08/2018 22:33 IP Informed Consent Obtain: Vaginal Delivery IP Procedures: Sterile Vag Exam IP Progress Plan: Continue present management Membranes, Provider: Intact Contraction Comments Provider: q 5-6 mins FHR - Baseline A Provider: 125 IP Progress Note Comment: Patient evaluated, feeling increased pain with contractions. VE=6-7/100/-1 FHR = 125 mod renée, +accels no decels TOCO = ctxning q 5-6 mins A/P 1. patient about the same exam. Continue to show no signs of chorio, FHR = reactive, afebrile, no new abnormal cervical discharge 2. Patient in pain requesting an epidural 3. Discussed management with Dr. Coto - if patient does not progress over night, will induce l abor because of increased risk of chorioamnionitis 4. CEFm and TOCO 5. Neonatology aware of status Vital Signs Provider: Reviewed; Within Normal Limits NICHD Accel Fetus A IP Provider: [id number] NICHD Variability Prov Fetus A: Moderate 6-25bpm Dilatation, Provider: 6-7 Effacement, Provider: 100 Station, Provider: -1 NICHD Decel Fetus A IP Provider: None
[2018-10-09] MEDS: Lactated Ringer's 1,000 ML IV SCH (00:15)
[2018-10-09] MEDS ORDERED: Oxycodone/Acetaminophen 5/325 mg Tab PO PRN ×2 (08:37→11:28)
[2018-10-09] MEDS ORDERED: Benzocaine/Menthol SPRAY TOP PRN ×2 (08:37→11:28)
--- NOTE | 2018-10-09 09:07 | OBDS ---
MATERNAL INFORMATION Provider Comments: Pt progressed to complete and pushed to deliver a viable male infant delivered th rough clear fluid at 0758. Apgars 7, 8 and 9. Wt 4#4.4, 1940 gms. Delayed cord clamping done and c ord was then doubly clamped and cord was cut. was taken to the warmer w/ research development director present . Cord blood collected for evercord. Placenta delivered spntaneously intact w/ 3vc. Second degree repaired w/ 2-0 rapide and 3-0v. Rectum intact. Pt and baby tolerated procedure well. QBL 50 ml LABOR SUMMARY EDC: 12/03/2018 00:00 No. Babies in Womb: 0 LABOR INFORMATION Group B Beta Strep: Not Done MEMBRANES Membranes Rupture Method: Artificial Rupture of Membranes: 10/09/2018 07:08 Amniotic Fluid Color: Bloody Amniotic Fluid Amount: Moderate Amniotic Fluid Odor: Normal PRESENTATION/POSITION BABY A Presentation: Cephalic
[2018-10-10 00:05] LABS: URINE BILIRUBIN NEGATIVE (NEGATIVE); URINE BLOOD NEGATIVE (NEGATIVE); URINE CLARITY CLOUDY (Clear); URINE COLOR YELLOW (YELLOW); URINE GLUCOSE (UA) NEGATIVE (NEGATIVE); URINE LEUKOCYTE ESTERASE SMALL Leu/uL (Negative); URINE PROTEIN NEGATIVE (NEGATIVE); URINE UROBILINOGEN 0.2-1.0 mg/dL (0.2-1.0)
[2018-10-10 00:06] LABS: SQUAMOUS EPITHIAL 20 /hpf (0-5); URINE BACTERIA FEW (<OCC); URINE URIC ACID CRYSTALS MANY /hpf (<OCC)
[2018-10-10 00:07] LABS: SPECIMEN COMMENT CLOUDY
[2018-10-10 07:05] LABS: BASO % 0.2 % (0.0-2.0); EOS % 0.1 % (0.0-4.0); HEMOGLOBIN 8.1 g/dL (12.0-16.0); LYMPH # 1.9 K/uL (1.0-4.3); LYMPH % 17.5 % (20.0-40.0); MEAN CELL VOLUME 88.5 fl (81.0-99.0); MEAN CORPUSCULAR HEMOGLOBIN 27.6 pg (27.0-31.0); MEAN CORPUSCULAR HGB CONC 31.2 g/dL (33.0-37.0); MEAN PLATELET VOLUME 13.9 fl (7.2-11.7); MONO # 0.7 K/uL (0.0-0.8); MONO % 6.7 % (0.0-10.0); NEUT # 8.3 K/uL (1.8-7.0); NEUT % 75.5 % (50.0-75.0); NRBC % 0.1 % (0.0-0.0); RBC 2.92 Mil/uL (3.80-5.20); RED CELL DISTRIBUTION WIDTH 15.1 % (11.5-14.5)
--- NOTE | 2018-10-11 07:10 | OBPPN ---
Datetime: 10/11/2018 07:06 PP Abdomen/Uterus Prov: Normal PP Lochia Prov: Normal PP Extremities Prov: Normal PP Impression Prov: Normal progression PP Plan Prov: Discharge PP Progress Note Prov: PPD 2 s/p males at 32+ 1 wks, doing well Rx's motrin and Slow fe given Discharge home today Vital Signs Provider PP: Reviewed Datetime: 10/10/2018 17:45 PP Pain Prov: Within normal limits PP Nausea Prov: Denies PP Flatus Prov: Yes PP BM Prov: Yes (Annotations: Data stored by N on behalf of user) PP Heart Prov: Normal PP Lungs Prov: Normal PP Progress Prov: Normal Datetime: 10/10/2018 09:50 PP Breasts Prov: Normal PP Vulva/Perineum Prov: Normal PP CVA Tenderness Prov: Normal
--- NOTE | 2018-10-11 07:12 | OBDCSUM ---
Datetime: 10/11/2018 07:09 Follow up at, Provider: Dr. Josie Chris Instr Activity: Normal activity; May Shower Disch Instr Diet: Regular Discharge Instructions, Provider: Routine instructions given Discharge Diagnosis, Provider: Delivery Discharge Time: 10/11/2018 07:09 Follow up in weeks, Provider: 6 weeks Contraception discussed, Prov: No Disch Activity Restrictions: No exercising; No lifting; No sexual activity; Nothing in vagina - Inte rcourse, tampons, douche
[2018-10-12 01:18] VITALS: BP 108/73; PULSE 92; RESP 18; TEMP 97.6; O2SAT 100
== END 2018-10-11 21:16 | disposition home or self-care (01) | DRG 807 ==
LOC: EDBD 23:37 → EDSEX 23:37 → H.L&D 10-08 05:57 → H.OB/GYN 10-09 10:00
PROVIDERS: ADMIT Obstetrics & Gynecology Gynecology; ATTEND Obstetrics & Gynecology Gynecology
PROC: 4A1HXCZ Monitoring of Products of Conception, Cardiac Rate, External Approach (ICD-10-PCS; 2018-10-08)
PROC: 10E0XZZ Delivery of Products of Conception, External Approach (ICD-10-PCS; principal; 2018-10-09)
PROC: 0KQM0ZZ Repair Perineum Muscle, Open Approach (ICD-10-PCS; 2018-10-09)
DX: O60.14X0 Preterm labor third trimester with preterm delivery third trimester, not applicable or unspecified (principal); Z37.0 Single live birth; O70.1 Second degree perineal laceration during delivery; Z3A.32 32 weeks gestation of pregnancy; O24.420 Gestational diabetes mellitus in childbirth, diet controlled